=== PATIENT | female | born 1985 | race Caucasian/White ===

== ENCOUNTER 2016-05-19 18:45 | Emergency (ER) | payer MEDICAID ==
[~2016-05-19] VITALS: Ht 162.6 cm; Wt 80.8 kg
[2016-05-19 19:04] VITALS: Ht 162.6 cm; Wt 80.8 kg
[2016-05-19 22:00] LABS: URINE BLOOD (Dip) POC 2+ (NEGATIVE)
[2016-05-19] MEDS ORDERED: NITR-58 PO (22:38)
[2016-05-19] MEDS ORDERED: PHEN-537 PO (22:38)
--- NOTE | 2016-05-19 22:42 | ERD ---
ER Documentation Chief Complaint Date/Time DATE: 05/19/16 TIME: 22:39 Chief Complaint Frequency urine and pelvic pain HPI 30-year-old female with no significant past medical history presents the ED complaining of dysuria, urgency, frequency and burning with urination since 3 days ago. States that she tried drinking many cups of water as well as cranberry juice but it did not alleviate her pain. States that she has had many recurrent urinary tract infections in the past. States that her last urinary tract infection was 6 months ago. States that her last menses was about 1 week ago. Reports that she is A0. States that she is currently sexually active with one partner however denies any vaginal bleeding or vaginal discharge. Denies any fever, flank pain, abdominal pain, nausea, vomiting, diarrhea, chest pain, shortness of breath. ROS All systems reviewed and are negative except as per history of present illness. Medications Home Meds Active Scripts Phenazopyridine Hcl* (Pyridium*) 100 Mg Tab, 100 MG PO TID Y for URINARY PAIN, # 8 TAB Prov:JENNIFER REYES PA-C 05/19/16 Nitrofurantoin Monohyd Macrocr* (Macrobid*) 100 Mg Capsr, 100 MG PO BID for 7 Days, CAP Prov:JENNIFER REYES PA-C 05/19/16 Allergies Allergies: Coded Allergies: No Known Allergy (Unverified , 05/19/16) PMhx/Soc Medical and Surgical Hx: pt denies Medical Hx, pt denies Surgical Hx History of Surgery: No Anesthesia Reaction: No Hx Neurological Disorder: No Hx Respiratory Disorders: No Hx Cardiac Disorders: No Hx Psychiatric Problems: No Hx Miscellaneous Medical Probl: No Hx Alcohol Use: Yes (OOC) Hx Substance Use: No Hx Tobacco Use: No Smoking Status: Former smoker Physical Exam Vitals Temp 98.3 Pulse 70 SBP 141 DBP 83 Resp 18 O2 Sat 99 Pain Intensity 4 Physical Exam Const: [id number], well-nourished. In no acute distress. Head: Atraumatic, normocephalic Eyes: Normal Conjunctiva without injection. No purulent discharge. ENT: Normal external ear, nose. Moist oropharynx without tonsillar exudates. Non -erythematous pharynx. Uvula midline. No drooling. No trismus. Neck: No cervical midline tenderness. Full range of motion. No meningismus. No cervical lymphadenopathy. No JVD. Resp: Clear to auscultation bilaterally. No wheezing, rhonchi, rales, or crackles. No accessory muscle use. No retractions. Cardio: Regular rate and rhythm. No murmurs, rubs or gallops. Abd: Soft, nontender, non distended. Normal bowel sounds. No palpable masses. No rebound tenderness. No guarding. Negative McBurney's point. Negative psoas sign. Negative obturator sign. Skin: No petechiae or rashes Back: No midline tenderness. No CVA tenderness. Ext: No cyanosis, or edema. Neur: Awake and alert. Normal gait. Normal coordination. Psych: Normal Mood and Affect Results 24 hrs Laboratory Tests Test 05/19/16 22:03 Bedside Urine Blood 2+ Bedside Urine Glucose (UA) Negative Bedside Urine Ketones (LAB) Negative Bedside Urine Leukocyte Esterase (L 3+ Bedside Urine Nitrite (LAB) Negative Bedside Urine Protein (LAB) 1+ Bedside Urine pH (LAB) 6.0 Procedures/MDM This is a 30-year-old female with no significant past medical history presents the ED is a presenting to the ED with dysuria, urgency, frequency, hematuria, burning with urination. Patient is afebrile and nontoxic-appearing. Patient has normal vital signs. A urine dip and urine was ordered to further evaluate patient. Patient has a urine dip showing 3+ leukocyte esterase, 2+ hematuria. Negative test noted here in the ED. based on patient's complaints and lab findings, patient likely has a urinary tract infection. There is low suspicion for a septic renal stone, nephrolithiasis, pyelonephritis. Low suspicion for gastritis, GERD, peptic ulcer disease, cholecystitis, choledocholithiasis, cholangitis, pancreatitis, appendicitis, bowel obstruction, ileus, volvulus, nephrolithiasis, pyelonephritis, hepatitis, perforated viscus, diverticulitis, abdominal hernia, acute abdomen, mesenteric ischemia or other emergent conditions. Discharge medications: Macrobid, Pyridium Follow up with primary care physician in 1-2 days for referral to visiting teacher. Instructed patient to return to the ED sooner for any worsening symptoms. Patient's questions were answered. Patient understood and agreed with discharge plan. Patient discharged stable. Departure Diagnosis: Primary Impression: Urinary tract infection Urinary tract infection type: site unspecified Hematuria presence: with hematuria Qualified Code: N39.0 - Urinary tract infection with hematuria, site unspecified Condition: Stable Patient Instructions: Understanding Urinary Tract Infections (UTIs) Referrals: [facility] [place] YOU HAVE RECEIVED A MEDICAL SCREENING EXAM AND THE RESULTS INDICATE THAT YOU DO NOT HAVE A CONDITION THAT REQUIRES URGENT TREATMENT IN THE EMERGENCY DEPARTMENT. FURTHER EVALUATION AND TREATMENT OF YOUR CONDITION CAN WAIT UNTIL YOU ARE SEEN IN YOUR DOCTORS OFFICE WITHIN THE NEXT 1-2 DAYS. IT IS YOUR RESPONSIBILITY TO MAKE AN APPOINTMENT FOR FOLOW-UP CARE. IF YOU HAVE A PRIMARY DOCTOR --you should call your primary doctor and schedule an appointment IF YOU DO NOT HAVE A PRIMARY DOCTOR YOU CAN CALL OUR PHYSICIAN REFERRAL HOTLINE AT IF YOU CAN NOT AFFORD TO SEE A PHYSICIAN YOU CAN CHOSE FROM THE FOLLOWING [facility] [address] [facility] [address] [facility] [address] [facility] [address] [facility] [address] [facility]. [facility] [address] [facility]. [facility] YOU HAVE RECEIVED A MEDICAL SCREENING EXAM AND THE RESULTS INDICATE THAT YOU DO NOT HAVE A CONDITION THAT REQUIRES URGENT TREATMENT IN THE EMERGENCY DEPARTMENT. FURTHER EVALUATION AND TREATMENT OF YOUR CONDITION CAN WAIT UNTIL YOU ARE SEEN IN YOUR DOCTORS OFFICE WITHIN THE NEXT 1-2 DAYS. IT IS YOUR RESPONSIBILITY TO MAKE AN APPOINTMENT FOR FOLOW-UP CARE. IF YOU HAVE A PRIMARY DOCTOR --you should call your primary doctor and schedule and appointment IF YOU DO NOT HAVE A PRIMARY DOCTOR YOU CAN CALL OUR PHYSICIAN REFERRAL HOTLINE AT . IF YOU CAN NOT AFFORD TO SEE A PHYSICIAN YOU CAN CHOSE FROM THE FOLLOWING [facility] INSTITUTIONS: [facility] [address] [place] [address] [facility] [address] [place] [address] [facility] + [facility] [place] [address] [place] [address] [facility] URGENT CARE/SPECIALTIES Additional Instructions: FOLLOW UP WITH YOUR PRIMARY CARE PHYSICIAN TOMORROW.Return to this facility if you are not improving as expected. JENNIFER REYES PA-C May 19, 2016 22:42 JENNIFER REYES PA-C May 19, 2016 22:42
[2016-05-19 22:51] VITALS: BP 115/89; PULSE 87; RESP 18; TEMP 98.2
== END 2016-05-19 22:52 | disposition home or self-care (01) ==
LOC: FTE 18:45
DX: N39.0 Urinary tract infection, site not specified (principal); R10.2 Pelvic and perineal pain; Z87.891 Personal history of nicotine dependence
CPT/HCPCS: 81003; Z7502; 99283

== ENCOUNTER 2017-07-03 19:57 | Emergency (ER) | END 2017-07-03 23:38 | disposition home or self-care (01) ==

== ENCOUNTER 2018-06-21 19:30 | Emergency (ER) | payer SELFPAY ==
[~2018-06-21] VITALS: Ht 167.6 cm; Wt 89.0 kg
[~2018-06-21 19:30] MED LIST: BENZ200C68 PO; NITR-58 PO; PHEN-537 PO
[2018-06-21 19:45] VITALS: BP 158/99; PULSE 104; RESP 18; Ht 167.6 cm; Wt 89.0 kg
== END 2018-06-22 02:40 | disposition left against medical advice (07) ==
LOC: FTE 19:30
DX: Z53.21 Procedure and treatment not carried out due to patient leaving prior to being seen by health care provider (principal)

== ENCOUNTER 2018-08-18 10:35 | Emergency (ER) | payer SELFPAY ==
[~2018-08-18] VITALS: Ht 167.6 cm; Wt 79.0 kg
[2018-08-18 10:38] VITALS: BP 162/89; PULSE 103; RESP 20; Ht 167.6 cm; Wt 79.0 kg
[2018-08-18] MEDS ORDERED: AMOX1TAB10 PO (12:06)
[2018-08-18] MEDS ORDERED: FLUT9.9S NASAL (12:06)
[2018-08-18] MEDS ORDERED: ACET500C5 PO (12:07)
--- NOTE | 2018-08-18 12:12 | ERD ---
ER Documentation Chief Complaint Chief Complaint pt is bib self with c/o "sinus infection" GUTIERREZ and congestion with vomiting HPI 32-year-old female patient with no significant past medical history presents the ED complaining of sinus pain that started intermittently for the last few weeks. States that she is tried taking ibuprofen, has not helped with her symptoms. Rates her pain a 10 out of 10. Reports that she feels like she has fluid inside of her sinuses that is traveling. States that the pain radiates to her ears, throat. Rates her pain a 10 out of 10. Denies any vomiting, diarrhea, neck stiffness, abdominal pain, fever, chills. Patient reports that she is swallowing liquids and solids without any difficulty. ROS All systems reviewed and are negative except as per history of present illness. Medications Home Meds Active Scripts Acetaminophen* (Tylophen*) 500 Mg Capsule, 1 CAP PO Q6H PRN for PAIN AND OR ELEVATED TEMP, #20 CAP Prov:JENNIFER REYES PA-C 08/18/18 Amoxicillin/Potassium Clav (Amox-Clav 875-125 mg Tablet) 875-125 mg Tab, 1 TAB PO BID for 7 Days, #14 TAB Prov:JENNIFER REYES PA-C 08/18/18 Fluticasone Propionate (Flonase Allergy Relief) 9.9 Ml [place].susp, 1 SPRAY NASAL DAILY, #1 BOTTLE TO EACH NOSTRIL Prov:JENNIFER REYES PA-C 08/18/18 Benzonatate* (Benzonatate*) 200 Mg Capsule, 200 MG PO TID PRN for COUGH, #15 CAP Prov:DAMIÁN CONTRERAS PA-C 07/03/17 Phenazopyridine Hcl* (Pyridium*) 100 Mg Tab, 100 MG PO TID PRN for URINARY PAIN, #8 TAB Prov:JENNIFER REYES PA-C 05/19/16 Nitrofurantoin Monohyd Macrocr* (Macrobid*) 100 Mg Capsr, 100 MG PO BID for 7 Days, CAP Prov:JENNIFER REYES PA-C 05/19/16 Allergies Allergies: Coded Allergies: No Known Allergy (Unverified , 05/19/16) PMhx/Soc History of Surgery: No Anesthesia Reaction: No Hx Neurological Disorder: No Hx Respiratory Disorders: No Hx Cardiac Disorders: No Hx Psychiatric Problems: No Hx Miscellaneous Medical Probl: No Hx Alcohol Use: Yes (OCC) Hx Substance Use: No Hx Tobacco Use: No FmHx Family History: No diabetes, No coronary disease Physical Exam Vitals Vital Signs Date Temp Pulse Resp B/P (MAP) Pulse Ox O2 O2 Flow FiO2 Time Delivery Rate 08/18/18 99.4 103 20 162/89 99 10:38 (113) Physical Exam Const: [id number], well-nourished. In no acute distress. Head: Atraumatic, normocephalic. Tenderness palpation of the bilateral maxi llary sinuses. Eyes: Normal Conjunctiva without injection. No purulent discharge. PERRLA. EOMI ENT: Normal external ear. Ear canal without erythema. Tympanic membrane pearly mitchell without effusion or bulging. Nasal canal clear with normal turbinates. Darryl st oropharynx without tonsillar exudates. Non-erythematous pharynx. Uvula midline. No drooling. No trismus. Neck: No cervical midline tenderness. Full range of motion. No meningismus. No cervical lymphadenopathy. No JVD. Resp: Clear to auscultation bilaterally. No wheezing, rhonchi, rales, or crackles. No accessory muscle use. No retractions. Cardio: Regular rate and rhythm. No murmurs, rubs or gallops. Abd: Soft, non tender, non distended. Normal bowel sounds. No palpable masses. No rebound tenderness. No guarding. Negative McBurney's Point. Negative Marsh's Sign. Skin: Normal skin turgor. No petechiae or rashes Back: No midline tenderness. No CVA tenderness. Ext: No cyanosis, or edema. Distal pulses intact bilaterally. Neur: Awake and alert. Normal gait. Normal coordination. Cranial Nerves II- VII intact. Normal finger to nose. Muscle strength 5/5. Sensation intact. Psych: Normal Mood and Affect Procedures/MDM 32-year-old female patient with no significant past medical history presents to the ED complaining of sinus pain. Patient is afebrile and nontoxic-appearing. Patient likely has sinusitis she has a tenderness palpation of the maxillary sinuses. Patient is afebrile and nontoxic-appearing. Patient's blood pressure is 162/89. Blood Pressure Assessment: Patient's blood pressure was elevated (>120/80) but appears stable without evidence of hypertension emergency or urgency. The patient was counseled about the risks of hypertension and urged to pursue outpatient monitoring and therapy within a week with their primary care physician. No tenderness to palpation of tragus or mastoid. Low suspicion for mastoiditis, otitis externa, otitis media. Patient is speaking in full sentences. There is a low suspicion for pneumonia, epiglottitis, sinusitis, peritonsillar abscess, Bryan's angina, retropharyngeal abscess, meningitis, sepsis, acute abdomen or other emergent conditions. Diagnosis: Sinus Pain Discharge medications: Tylenol Follow up with primary care physician in 1-2 days. Instructed patient to return to the ED sooner for any worsening symptoms. Patient's questions were answered. Patient is hemodynamically stable. Patient understood and agreed with discharge plan. Patient discharged stable. Disclaimer: Inadvertent spelling and grammatical errors are likely due to EHR/dictation software use and do not reflect on the overall quality of patient care. Also, please note that the electronic time recorded on this note does not necessarily reflect the actual time of the patient encounter. Departure Diagnosis: Primary Impression: Sinus pain Condition: Stable Patient Instructions: Sinusitis, Abx Tx Referrals: [facility] YOU HAVE RECEIVED A MEDICAL SCREENING EXAM AND THE RESULTS INDICATE THAT YOU DO NOT HAVE A CONDITION THAT REQUIRES URGENT TREATMENT IN THE EMERGENCY DEPARTMENT. FURTHER EVALUATION AND TREATMENT OF YOUR CONDITION CAN WAIT UNTIL YOU ARE SEEN IN YOUR DOCTORS OFFICE WITHIN THE NEXT 1-2 DAYS. IT IS YOUR RESPONSIBILITY TO MAKE AN APPOINTMENT FOR FOLOW-UP CARE. IF YOU HAVE A PRIMARY DOCTOR --you should call your primary doctor and schedule an appointment IF YOU DO NOT HAVE A PRIMARY DOCTOR YOU CAN CALL OUR PHYSICIAN REFERRAL HOTLINE AT IF YOU CAN NOT AFFORD TO SEE A PHYSICIAN YOU CAN CHOSE FROM THE FOLLOWING [facility] [address] [facility] [address] [facility] [address] [facility] [address] [facility]. [facility]. [facility]. [address] [facility]. [facility] YOU HAVE RECEIVED A MEDICAL SCREENING EXAM AND THE RESULTS INDICATE THAT YOU DO NOT HAVE A CONDITION THAT REQUIRES URGENT TREATMENT IN THE EMERGENCY DEPARTMENT. FURTHER EVALUATION AND TREATMENT OF YOUR CONDITION CAN WAIT UNTIL YOU ARE SEEN IN YOUR DOCTORS OFFICE WITHIN THE NEXT 1-2 DAYS. IT IS YOUR RESPONSIBILITY TO MAKE AN APPOINTMENT FOR FOLOW-UP CARE. IF YOU HAVE A PRIMARY DOCTOR --you should call your primary doctor and schedule and appointment IF YOU DO NOT HAVE A PRIMARY DOCTOR YOU CAN CALL OUR PHYSICIAN REFERRAL HOTLINE AT . IF YOU CAN NOT AFFORD TO SEE A PHYSICIAN YOU CAN CHOSE FROM THE FOLLOWING [facility] INSTITUTIONS: [facility] [address] [place] [address] [facility] [address] [place] [id number] [place] [address] [address] [place] [address] [facility] URGENT CARE/SPECIALTIES [facility] DENTIST ([facility] walk in clinic) Additional Instructions: Call your primary care doctor TOMORROW for an appointment during the next 2-3 days for a referral to see an ears nose throat specialist and dentist. See the doctor sooner or return here if your condition worsens before your appointment time. JENNIFER REYES PA-C August 18, 2018 12:12
== END 2018-08-18 12:41 | disposition home or self-care (01) ==
LOC: FTE 10:35
DX: J34.89 Other specified disorders of nose and nasal sinuses (principal)
CPT/HCPCS: 99283

== ENCOUNTER 2018-11-28 12:09 | Emergency (ER) | payer SELFPAY ==
[~2018-11-28] VITALS: Ht 167.6 cm; Wt 98.4 kg
[~2018-11-28 12:09] MED LIST changes: +ACET500C5 PO; +AMOX1TAB10 PO; +CETI10CA PO; +DOXY100T20 PO; +FLUT16SP17 NASAL; +FLUT9.9S NASAL; +LORA-441 PO
[2018-11-28 12:14] VITALS: BP 158/99; PULSE 115; RESP 24; Ht 167.6 cm; Wt 98.4 kg
== END 2018-11-28 13:20 | disposition home or self-care (01) ==
LOC: E/R 12:09
DX: J32.0 Chronic maxillary sinusitis (principal)